=== PATIENT | female | born 1980 | race Caucasian/White ===

== ENCOUNTER 2019-11-03 17:32 | Emergency (ER) | payer OTHER ==
[~2019-11-03] VITALS: Ht 172.7 cm; Wt 71.2 kg
[2019-11-03] MEDS ORDERED: NOHOMEMEDICATIONS (17:48)
[2019-11-03 18:24] LABS: URINE BILIRUBIN NEGATIVE (Negative); URINE BLOOD 2+ (Negative); URINE CLARITY CLOUDY; URINE COLOR YELLOW; URINE GLUCOSE-RANDOM* NEGATIVE (Negative); URINE KETONES NEGATIVE (Negative); URINE LEUKOCYTES-REFLEX 3+ (Negative); URINE NITRITE-REFLEX NEGATIVE (Negative); URINE PROTEIN (DIPSTICK) TRACE (Negative); URINE SPECIFIC GRAVITY 1.025 (1.005-1.035); URINE UROBILINOGEN 0.2 E.U./dl (0.2-1.0)
[2019-11-03 18:35] LABS: SQUAMOUS >10 Many /LPF (0-3); URINE RBC 3-10 Few /HPF (0-2); URINE WBC-REFLEX >25 Many /HPF (0-5)
[2019-11-03 18:36] LABS: BACTERIA-REFLEX >30 Many /HPF (None Seen); CASTS None Seen /LPF (None Seen); CRYSTALS None Seen /LPF (None Seen)
[2019-11-03] MEDS ORDERED: FLAGYL500 M1 PO (19:46)
[2019-11-03] MEDS ORDERED: KEFLEX500 M1 PO (19:46)
[2019-11-03 19:51] VITALS: BP 110/84
== END 2019-11-03 19:52 | disposition home or self-care (01) ==
LOC: ER 17:32
PROVIDERS: Physician Assistant
DX: N39.0 Urinary tract infection, site not specified (principal); A59.9 Trichomoniasis, unspecified; R09.89 Other specified symptoms and signs involving the circulatory and respiratory systems; R50.9 Fever, unspecified; Z20.828 Contact with and (suspected) exposure to other viral communicable diseases; F17.210 Nicotine dependence, cigarettes, uncomplicated; Z98.51 Tubal ligation status